=== PATIENT | male | born 1990 | race Caucasian/White ===

== ENCOUNTER 2018-03-22 13:35 | Emergency (ER) | payer SELFPAY ==
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
== END 2018-03-22 15:34 | disposition home or self-care (01) ==
LOC: ER 13:35
DX: S30.0XXA Contusion of lower back and pelvis, initial encounter (principal); M79.652 Pain in left thigh; V86.55XA Driver of 3- or 4- wheeled all-terrain vehicle (ATV) injured in nontraffic accident, initial encounter
CPT/HCPCS: 72192; 99283